=== PATIENT | male | born 1935 | race Asian ===

== ENCOUNTER 2016-10-24 02:14 | Emergency (ER) | payer OTHER, MEDICAID ==
[~2016-10-24] VITALS: Ht 170.2 cm; Wt 49.9 kg
[2016-10-24 02:15] VITALS: BP 110/68; PULSE 74; RESP 18; TEMP 98; O2SAT 96
[2016-10-24] MEDS ORDERED: GASTROGRAFIN 120 ML ONE (02:38)
[2016-10-24 03:04] VITALS: BP 118/71; PULSE 75; RESP 18; TEMP 97.9; O2SAT 97
== END 2016-10-24 03:04 | disposition home or self-care (01) ==
LOC: SED 02:14
DX: Z46.59 Encounter for fitting and adjustment of other gastrointestinal appliance and device (principal)
CPT/HCPCS: 43760; 74240; 99284; Q9963

== ENCOUNTER 2016-11-21 10:22 | Emergency (ER) | payer OTHER, MEDICAID ==
[~2016-11-21] VITALS: Ht 170.2 cm; Wt 63.5 kg
[2016-11-21 10:29] VITALS: BP 128/58; PULSE 74; RESP 18; TEMP 98.2; O2SAT 98
--- NOTE | 2016-11-21 10:32 | NUR ---
Dr. Romero at bedside to assess pt and replace G-tube.
--- NOTE | 2016-11-21 10:32 | NUR ---
Pt placed to ER bed 01. Report given to JESSICA Wang.
--- NOTE | 2016-11-21 10:33 | NUR ---
PT SENT FROM [facility] FOR GT REPLACEMENT.PT HAS T-BAR. NO TRAUMA OR S/S INFECTION NOTED.
[2016-11-21] MEDS ORDERED: GASTROGRAFIN 120 ML ONE (10:36)
--- NOTE | 2016-11-21 10:45 | NUR ---
GT REPLACED BY .XRAY BEDSIDE AT PLACEMENT CHECK.
--- NOTE | 2016-11-21 10:52 | NUR ---
REPORT GIVEN TO PATIENCE [facility]ALEZ [facility] FOR PT D/C.
[2016-11-21 10:55] VITALS: BP 128/58; PULSE 74; RESP 18; TEMP 98.2; O2SAT 98
--- NOTE | 2016-11-21 10:55 | NUR ---
Patient given written and verbal discharge instructions and verbalizes understanding. ER MD discussed with patient the results and treatment provided. Given copies of tests performed in ER. Patient in stable condition. ID arm band removed. Primary care facilty educated on pain management and to follow up with PMD. Pain Scale 0 Opportunity for questions provided and answered.
== END 2016-11-21 10:55 | disposition home or self-care (01) ==
LOC: SED 10:22
DX: K94.23 Gastrostomy malfunction (principal); Z46.59 Encounter for fitting and adjustment of other gastrointestinal appliance and device; E11.9 Type 2 diabetes mellitus without complications; K21.9 Gastro-esophageal reflux disease without esophagitis; I10 Essential (primary) hypertension; Z86.73 Personal history of transient ischemic attack (TIA), and cerebral infarction without residual deficits
CPT/HCPCS: 74240-TC; 99284; Q9963

== ENCOUNTER 2017-11-13 11:39 | Inpatient (IN) | payer OTHER, MEDICAID ==
[~2017-11-13] VITALS: Ht 170.2 cm; Wt 72.6 kg
[~2017-11-13 11:39] MED LIST: ALBU2.5V7 INH; AMLO5TAB4 GT; FER300L GT; MAGN400O4 GT; OMEP40CA33 GT; ROB1 GT; SENN-153 GT; TRAM50TA92 GT; TYLL650 GT; TYLL650 PO
[2017-11-13 11:40] VITALS: BP_SYST 112
[2017-11-13] MEDS ORDERED: NACL 0.9% 1,000 ML IV SCH (11:45)
[2017-11-13] MEDS ORDERED: PIPERACILLIN/TAZO 3.38 GM in D5W 50 ML IV ONE (11:45)
[2017-11-13] MEDS ORDERED: VANCOMYCIN HCL 1,000 MG in D5W 250 ML IV ONE (11:45)
[2017-11-13 12:48] LABS: HEMATOCRIT 36.5 % (36-54); HEMOGLOBIN 11.6 g/dL (14.0-18.0); MEAN CORPUSCULAR HEMOGLOBIN 27 pg (27-31); MEAN CORPUSCULAR HGB CONC 32 % (32-36); MEAN CORPUSCULAR VOLUME 84 fL (79.0-98.0); PLATELET COUNT (AUTO) 631 K/uL (130-430); RED BLOOD CELL COUNT(AUTO) 4.34 MIL/uL (4.2-6.2); RED CELL DISTRIBUTION WIDTH 18.7 % (9.0-15.0); WHITE BLOOD COUNT (AUTO) 19.8 K/uL (4.8-10.8)
[2017-11-13 12:50] LABS: ANION GAP 3 (5-15); CALCIUM 9.2 mg/dL (8.4-11.0); CHLORIDE 101 mmol/L (98-107); CREATININE 1.05 mg/dL (0.55-1.30); GLUCOSE 109 mg/dL (70-99); POTASSIUM 4.6 mmol/L (3.5-5.1); SODIUM SERUM 132 mmol/L (136-145); UREA NITROGEN, BLOOD 36 mg/dL (8-21)
[2017-11-13 12:54] LABS: INR 0.9 (0.80-1.20); PROTHROMBIN TIME 9.6 SECS (9.5-12.5)
[2017-11-13 12:55] LABS: ALANINE AMINOTRANSFERASE 21 U/L (12-78); ALBUMIN 3.2 g/dL (3.4-4.8); ASPARTATE AMINOTRANSFERASE 22 U/L (10-37); TOTAL BILIRUBIN 0.6 mg/dL (0.0-1.0)
[2017-11-13 13:13] LABS: BAND % (MANUAL) 3 % (0-6); BASOPHILS % (MANUAL) 0 % (0-2); EOSINOPHILS % (MANUAL) 3 % (0-7); LYMPHOCYTES % (MANUAL) 9 % (20-46); MONOCYTES % (MANUAL) 3 % (0-11)
[2017-11-13] MEDS ORDERED: VANCOMYCIN HCL 1000 MG/VIAL IV ONE (13:14)
[2017-11-13] MEDS ORDERED: PIPERACILLIN/TAZOBACTAM 3.375 GM/VIAL (ZOSYN) IV ONE (13:14)
[2017-11-13] MEDS ORDERED: MULT GT (14:33)
[2017-11-13] MEDS ORDERED: CHLO473M5 MM (14:33)
[2017-11-13] MEDS ORDERED: UTI-STAT GT (14:33)
[2017-11-13] MEDS ORDERED: VITAMIN C GT (14:33)
[2017-11-13] MEDS ORDERED: INSULIN REGULAR, HUMAN 100 UNITS/ML, 10 ML VIAL (novoLIN R) SUBCUT PRN (15:30)
[2017-11-13] MEDS ORDERED: MILK OF MAGNESIA 30 ML UDC PO PRN (15:30)
[2017-11-13] MEDS ORDERED: ALBUTEROL SULFATE 0.083% 2.5 MG/3 ML VIAL.NEB INH PRN (15:30)
[2017-11-13] MEDS ORDERED: traMADol HCL HCL 50 MG TABLET (ULTRAM) GT PRN (15:30)
[2017-11-13] MEDS ORDERED: MILK OF MAGNESIA 30 ML UDC GT PRN (15:30)
[2017-11-13] MEDS ORDERED: ACETAMINOPHEN 650 MG/20.3 ML UDC GT PRN (15:30)
[2017-11-13] MEDS ORDERED: LevALBUTEROL HCL 1.25 MG/0.5 ML *CONC.* VIAL.NEB (XOPENEX CONC.) INH PRN (15:30)
[2017-11-13 15:40] LABS: BILIRUBIN,URINE NEGATIVE (NEGATIVE); BLOOD, URINE 2+ (NEGATIVE); COLOR,URINE YELLOW (YELLOW); GLUCOSE,URINE NEGATIVE (NEGATIVE); KETONES,URINE NEGATIVE (NEGATIVE); LEUKOCYTE ESTERASE ,URINE 3+ (NEGATIVE); NITRITE, URINE NEGATIVE (NEGATIVE); PH,URINE 7.5 (5.0-8.0); PROTEIN URINE 2+ (NEGATIVE); UROBILINOGEN,URINE 0.2 (0.2-1.0)
[2017-11-13 15:47] LABS: CLARITY/URINE HAZY (CLEAR)
[2017-11-13 15:48] LABS: WBC,URINE 50-80 /HPF (0-3)
[2017-11-13 15:49] LABS: BACTERIA,URINE MODERATE /HPF (None Seen); MUCUS,URINE None Seen /LPF (None Seen)
[2017-11-13 16:01] VITALS: BP_SYST 121
[2017-11-13 16:06] VITALS: BP_SYST 121
[2017-11-13 18:13] VITALS: BP_SYST 121
[2017-11-13] MEDS: PIPERACILLIN/TAZO 3.375/DEX-IS 50 ML IV SCH (18:28)
[2017-11-13] MEDS ORDERED: ALBUTEROL SULFATE 0.083% 2.5 MG/3 ML VIAL.NEB INH SCH (19:00)
[2017-11-13 20:00] VITALS: BP_SYST 148
[2017-11-13] MEDS: FERROUS SULFATE 300 MG/5 ML UDC GT SCH (21:39)
[2017-11-13] MEDS: GLYCOPYRROLATE 1 MG TABLET GT SCH (21:39)
[2017-11-13] MEDS: SENNOSIDES 8.6 MG TABLET GT SCH (21:39)
[2017-11-13] MEDS: CHLORHEXIDINE GLUCONATE 15 ML/DOSE, 480 ML MM SCH (21:40)
[2017-11-13] MEDS: LevALBUTEROL HCL 1.25 MG/0.5 ML *CONC.* VIAL.NEB (XOPENEX CONC.) INH SCH (23:01)
[2017-11-14] MEDS: PIPERACILLIN/TAZO 3.375/DEX-IS 50 ML IV SCH ×5 (00:08→23:11)
[2017-11-14] MEDS: LevALBUTEROL HCL 1.25 MG/0.5 ML *CONC.* VIAL.NEB (XOPENEX CONC.) INH SCH ×3 (07:19→22:50)
[2017-11-14 07:55] VITALS: BP_SYST 97
[2017-11-14 08:23] LABS: HEMATOCRIT 31.3 % (36-54); HEMOGLOBIN 10.2 g/dL (14.0-18.0); MEAN CORPUSCULAR HEMOGLOBIN 27 pg (27-31); MEAN CORPUSCULAR HGB CONC 33 % (32-36); MEAN CORPUSCULAR VOLUME 84 fL (79.0-98.0); PLATELET COUNT (AUTO) 605 K/uL (130-430); RED BLOOD CELL COUNT(AUTO) 3.72 MIL/uL (4.2-6.2); RED CELL DISTRIBUTION WIDTH 18.7 % (9.0-15.0); WHITE BLOOD COUNT (AUTO) 14.3 K/uL (4.8-10.8)
[2017-11-14 08:47] LABS: ANION GAP 5 (5-15); CALCIUM 8.7 mg/dL (8.4-11.0); CHLORIDE 105 mmol/L (98-107); CREATININE 1.18 mg/dL (0.55-1.30); GLUCOSE 120 mg/dL (70-99); POTASSIUM 4.6 mmol/L (3.5-5.1); SODIUM SERUM 139 mmol/L (136-145); UREA NITROGEN, BLOOD 26 mg/dL (8-21)
[2017-11-14] MEDS: amLODIPine BESYLATE 5 MG TABLET GT SCH (09:00)
[2017-11-14] MEDS ORDERED: ACETAMINOPHEN 650 MG/20.3 ML UDC GT SCH (09:00)
[2017-11-14] MEDS: CHLORHEXIDINE GLUCONATE 15 ML/DOSE, 480 ML MM SCH ×2 (10:05→20:43)
[2017-11-14] MEDS: FERROUS SULFATE 300 MG/5 ML UDC GT SCH ×3 (10:05→20:42)
[2017-11-14] MEDS: GLYCOPYRROLATE 1 MG TABLET GT SCH ×2 (10:06→20:42)
[2017-11-14] MEDS: MULTIVITAMINS TAB 1 TABLET GT SCH (10:06)
[2017-11-14] MEDS: VANCOMYCIN HCL 1,500 MG in NS 250 ML IV SCH (10:06)
[2017-11-14] MEDS: OMEPRAZOLE 20 MG CAPSULE.DR (PriLOSEC) GT SCH (10:07)
[2017-11-14 10:23] LABS: BASOPHILS % (MANUAL) 0 % (0-2); EOSINOPHILS % (MANUAL) 1 % (0-7); LYMPHOCYTES % (MANUAL) 7 % (20-46); MONOCYTES % (MANUAL) 6 % (0-11)
[2017-11-14 15:08] VITALS: BP_SYST 101
[2017-11-14 20:00] VITALS: BP_SYST 105
[2017-11-14] MEDS: SENNOSIDES 8.6 MG TABLET GT SCH (20:42)
[2017-11-14 23:59] VITALS: BP_SYST 121
[2017-11-15] MEDS: PIPERACILLIN/TAZO 3.375/DEX-IS 50 ML IV SCH ×4 (06:00→23:18)
[2017-11-15 07:17] LABS: BASOPHILS # (AUTO) 0.1 K/uL (0.0-0.2); BASOPHILS % (AUTO) 0.8 % (0.0-2.0); EOSINOPHILS # (AUTO) 1.2 K/uL (0.0-0.4); EOSINOPHILS % (AUTO) 9.5 % (0.0-4.0); HEMATOCRIT 30.1 % (36-54); HEMOGLOBIN 9.7 g/dL (14.0-18.0); LYMPHOCYTES # (AUTO) 1.1 K/uL (1.0-5.5); LYMPHOCYTES % (AUTO) 8.9 % (20.5-51.5); MEAN CORPUSCULAR HEMOGLOBIN 27 pg (27-31); MEAN CORPUSCULAR HGB CONC 32 % (32-36); MEAN CORPUSCULAR VOLUME 84 fL (79.0-98.0); MONOCYTES # (AUTO) 0.5 K/uL (0.0-1.0); NEUTROPHILS # (AUTO) 9.5 K/uL (1.8-7.7); NEUTROPHILS % (AUTO) 76.8 % (40.0-70.0); PLATELET COUNT (AUTO) 593 K/uL (130-430); RED BLOOD CELL COUNT(AUTO) 3.59 MIL/uL (4.2-6.2); WHITE BLOOD COUNT (AUTO) 12.4 K/uL (4.8-10.8)
[2017-11-15] MEDS: LevALBUTEROL HCL 1.25 MG/0.5 ML *CONC.* VIAL.NEB (XOPENEX CONC.) INH SCH ×3 (07:35→23:31)
[2017-11-15 07:51] LABS: ANION GAP 5 (5-15); CALCIUM 8.7 mg/dL (8.4-11.0); CHLORIDE 106 mmol/L (98-107); CREATININE 1.19 mg/dL (0.55-1.30); GLUCOSE 132 mg/dL (70-99); POTASSIUM 4.2 mmol/L (3.5-5.1); SODIUM SERUM 142 mmol/L (136-145); UREA NITROGEN, BLOOD 27 mg/dL (8-21)
[2017-11-15 08:53] VITALS: BP_SYST 127
[2017-11-15] MEDS: MULTIVITAMINS TAB 1 TABLET GT SCH (08:57)
[2017-11-15] MEDS: GLYCOPYRROLATE 1 MG TABLET GT SCH ×2 (08:57→20:44)
[2017-11-15] MEDS: FERROUS SULFATE 300 MG/5 ML UDC GT SCH ×3 (08:57→20:44)
[2017-11-15] MEDS: OMEPRAZOLE 20 MG CAPSULE.DR (PriLOSEC) GT SCH (08:57)
[2017-11-15] MEDS: amLODIPine BESYLATE 5 MG TABLET GT SCH (08:58)
[2017-11-15] MEDS: CHLORHEXIDINE GLUCONATE 15 ML/DOSE, 480 ML MM SCH ×2 (09:00→20:52)
[2017-11-15] MEDS: VANCOMYCIN HCL 1,500 MG in NS 250 ML IV SCH (09:00)
[2017-11-15 11:25] VITALS: BP_SYST 110
[2017-11-15 11:44] LABS: INR 0.9 (0.80-1.20); PROTHROMBIN TIME 9.6 SECS (9.5-12.5)
[2017-11-15 15:31] VITALS: BP_SYST 124
[2017-11-15 20:00] VITALS: BP_SYST 135
[2017-11-15] MEDS: SENNOSIDES 8.6 MG TABLET GT SCH (20:44)
[2017-11-16] VITALS: BP_SYST 117
[2017-11-16] MEDS: PIPERACILLIN/TAZO 3.375/DEX-IS 50 ML IV SCH ×2 (05:11→12:05)
[2017-11-16] MEDS: LevALBUTEROL HCL 1.25 MG/0.5 ML *CONC.* VIAL.NEB (XOPENEX CONC.) INH SCH (07:14)
[2017-11-16 07:32] LABS: ANION GAP 3 (5-15); CHLORIDE 108 mmol/L (98-107); CREATININE 1.13 mg/dL (0.55-1.30); GLUCOSE 105 mg/dL (70-99); POTASSIUM 4.5 mmol/L (3.5-5.1); SODIUM SERUM 142 mmol/L (136-145); UREA NITROGEN, BLOOD 29 mg/dL (8-21)
[2017-11-16 08:00] VITALS: BP_SYST 140
[2017-11-16 09:32] VITALS: BP_SYST 117
[2017-11-16] MEDS: FERROUS SULFATE 300 MG/5 ML UDC GT SCH (09:48)
[2017-11-16] MEDS: VANCOMYCIN HCL 1,500 MG in NS 250 ML IV SCH (09:48)
[2017-11-16] MEDS: GLYCOPYRROLATE 1 MG TABLET GT SCH (09:49)
[2017-11-16] MEDS: amLODIPine BESYLATE 5 MG TABLET GT SCH (09:49)
[2017-11-16] MEDS: MULTIVITAMINS TAB 1 TABLET GT SCH (09:49)
[2017-11-16] MEDS: OMEPRAZOLE 20 MG CAPSULE.DR (PriLOSEC) GT SCH (09:49)
[2017-11-16] MEDS: CHLORHEXIDINE GLUCONATE 15 ML/DOSE, 480 ML MM SCH (09:50)
[2017-11-16 10:22] LABS: HEMATOCRIT 32.2 % (36-54); HEMOGLOBIN 10.3 g/dL (14.0-18.0); MEAN CORPUSCULAR HEMOGLOBIN 27 pg (27-31); MEAN CORPUSCULAR HGB CONC 32 % (32-36); MEAN CORPUSCULAR VOLUME 85 fL (79.0-98.0); PLATELET COUNT (AUTO) 647 K/uL (130-430); RED CELL DISTRIBUTION WIDTH 19.5 % (9.0-15.0); WHITE BLOOD COUNT (AUTO) 11.6 K/uL (4.8-10.8)
[2017-11-16 10:30] LABS: BASOPHILS % (MANUAL) 0 % (0-2); EOSINOPHILS % (MANUAL) 9 % (0-7); LYMPHOCYTES % (MANUAL) 9 % (20-46); MONOCYTES % (MANUAL) 6 % (0-11)
[2017-11-16 11:22] VITALS: BP_SYST 94
[2017-11-16 14:08] VITALS: BP_SYST 155
== END 2017-11-16 15:05 | DRG 871 ==
LOC: SED 11:39 → STU 14:32 → SMU 15:40
PROVIDERS: ADMIT Family Medicine; ATTEND Family Medicine
DX: A41.9 Sepsis, unspecified organism (principal); J69.0 Pneumonitis due to inhalation of food and vomit; J96.10 Chronic respiratory failure, unspecified whether with hypoxia or hypercapnia; Z93.0 Tracheostomy status; E44.1 Mild protein-calorie malnutrition; E87.1 Hypo-osmolality and hyponatremia; E11.9 Type 2 diabetes mellitus without complications; D64.9 Anemia, unspecified; I69.354 Hemiplegia and hemiparesis following cerebral infarction affecting left non-dominant side; N39.0 Urinary tract infection, site not specified; I25.10 Atherosclerotic heart disease of native coronary artery without angina pectoris; I10 Essential (primary) hypertension; K21.9 Gastro-esophageal reflux disease without esophagitis; Z93.1 Gastrostomy status; Z68.25 Body mass index [BMI] 25.0-25.9, adult; Z79.899 Other long term (current) drug therapy
CPT/HCPCS: 36415; 71045; 73060-TC; 80048; 80053; 81000-TC; 82962; 83605; 84484; 85007; 85025; 85027; 85610-TC; 85730-TC; 87040-TC; 87081; 87086; 93005; 94640; 94760; 96365; 96367; 99285; J1815; J2543; J3370; J7030; J7050; J7060

== ENCOUNTER 2017-12-13 12:16 | Emergency (ER) | payer OTHER, MEDICAID ==
[~2017-12-13] VITALS: Ht 177.8 cm; Wt 79.4 kg
[~2017-12-13 12:16] MED LIST changes: +CHLO473M5 MM; +MULT GT; +SSREG SUBCUT; -TYLL650 PO; +UTI-STAT GT; +VITAMIN C GT
--- NOTE | 2017-12-13 12:20 | NUR ---
Arrived via S ambulance for GT replacement. Patient to ER jimenez on EMS gurney for evaluation. Side rails up. Assumed care of patient.
[2017-12-13 12:24] VITALS: BP_SYST 110
--- NOTE | 2017-12-13 12:28 | NUR ---
Dr. Mendoza in [facility] performing GT replacement.
[2017-12-13] MEDS ORDERED: GASTROGRAFIN 120 ML ONE (12:54)
--- NOTE | 2017-12-13 13:45 | NUR ---
Called report to Sherita LOPEZ at [facility]. Patient will be transported via BLS ambulance to [facility].
== END 2017-12-13 13:45 | disposition home or self-care (01) ==
LOC: SED 12:16
DX: Z46.59 Encounter for fitting and adjustment of other gastrointestinal appliance and device (principal); E11.9 Type 2 diabetes mellitus without complications; K21.9 Gastro-esophageal reflux disease without esophagitis; I10 Essential (primary) hypertension; J44.9 Chronic obstructive pulmonary disease, unspecified; Z86.73 Personal history of transient ischemic attack (TIA), and cerebral infarction without residual deficits; Z79.4 Long term (current) use of insulin; Z90.49 Acquired absence of other specified parts of digestive tract; Z79.899 Other long term (current) drug therapy
CPT/HCPCS: 43760; 74240; 99284; Q9963

== ENCOUNTER 2018-01-11 01:30 | Emergency (ER) | payer OTHER, MEDICAID ==
[~2018-01-11] VITALS: Ht 185.4 cm; Wt 83.9 kg
[2018-01-11 01:30] VITALS: BP_SYST 70
[2018-01-11] MEDS ORDERED: EPINEPHrine JECT 1 MG/10 ML SYR IVP ONE (01:31)
[2018-01-11] MEDS ORDERED: ATROPINE SULFATE 1 MG/10 ML SYRINGE IVP ONE (01:31)
[2018-01-11] MEDS: NS 1000 ML BAG IV ONE (02:16)
[2018-01-11] MEDS ORDERED: ZIN220 GT (02:30)
[2018-01-11] MEDS ORDERED: DULR10 RC (02:30)
[2018-01-11] MEDS ORDERED: LEVO500T20 GT (02:30)
[2018-01-11] MEDS ORDERED: FER300L GT (02:30)
[2018-01-11] MEDS ORDERED: TYLL650 GT (02:30)
[2018-01-11 02:47] LABS: ANION GAP 24 (5-15); CHLORIDE 91 mmol/L (98-107); CREATININE 3.63 mg/dL (0.55-1.30); GLUCOSE 73 mg/dL (70-99); POTASSIUM 5.5 mmol/L (3.5-5.1); SODIUM SERUM 130 mmol/L (136-145); UREA NITROGEN, BLOOD 69 mg/dL (8-21)
[2018-01-11 02:52] LABS: ALANINE AMINOTRANSFERASE 400 U/L (12-78); ALBUMIN 2.5 g/dL (3.4-4.8); ASPARTATE AMINOTRANSFERASE 457 U/L (10-37); TOTAL BILIRUBIN 2.4 mg/dL (0.0-1.0)
[2018-01-11 02:55] LABS: HEMATOCRIT 33.3 % (36-54); HEMOGLOBIN 10.5 g/dL (14.0-18.0); MEAN CORPUSCULAR HEMOGLOBIN 28 pg (27-31); MEAN CORPUSCULAR HGB CONC 32 % (32-36); MEAN CORPUSCULAR VOLUME 89 fL (79.0-98.0); PLATELET COUNT (AUTO) 239 K/uL (130-430); RED BLOOD CELL COUNT(AUTO) 3.74 MIL/uL (4.2-6.2); RED CELL DISTRIBUTION WIDTH 17.9 % (9.0-15.0)
[2018-01-11 02:58] LABS: INR 1.3 (0.80-1.20)
[2018-01-11 02:59] LABS: PROTHROMBIN TIME 13.3 SECS (9.5-12.5)
[2018-01-11 03:00] LABS: WHITE BLOOD COUNT (AUTO) 33.4 K/uL (4.8-10.8)
[2018-01-11] MEDS ORDERED: PIPERACILLIN/TAZOBACTAM 3.375 GM/VIAL (ZOSYN) IV ONE (03:19)
[2018-01-11 03:30] LABS: BAND % (MANUAL) 28 % (0-6); LYMPHOCYTES % (MANUAL) 2 % (20-46); MONOCYTES % (MANUAL) 1 % (0-11)
[2018-01-11 03:31] LABS: BASOPHILS % (MANUAL) 0 % (0-2); EOSINOPHILS % (MANUAL) 2 % (0-7); METAMYELOCYTES % 13 % (0-0)
[2018-01-11] MEDS ORDERED: VANCOMYCIN HCL 1000 MG/VIAL IV ONE ×2 (03:42→04:03)
[2018-01-11] MEDS ORDERED: NOREPINEPHRINE 4 MG/4 ML VIAL IV ONE (03:44)
[2018-01-11] MEDS ORDERED: AZITHROMYCIN 500 MG/VIAL (ZITHROMAX) IV ONE (04:02)
[2018-01-11] MEDS: NOREPINEPHRINE BITARTRATE 4 MG in NS 246 ML IV ONE (04:11)
[2018-01-11] MEDS: PIPERACILLIN/TAZO 3.375 GM in NS 50 ML IV ONE (04:14)
[2018-01-11] MEDS: VANCOMYCIN HCL 1,000 MG in NS 250 ML IV ONE (04:19)
[2018-01-11] MEDS ORDERED: EPINEPHrine JECT 1 MG/10 ML SYR ONE (04:45)
[2018-01-11] MEDS: NACL 0.9% 1,000 ML IV ONE (05:04)
[2018-01-11] MEDS: EPINEPHrine JECT 2 MG in NS 230 ML IV PRN (05:15)
[2018-01-11] MEDS: AZITHROMYCIN 500 MG in NS 250 ML IV ONE (05:16)
[2018-01-11 05:59] VITALS: BP_SYST 75
== END 2018-01-11 06:12 | disposition expired ==
LOC: SED 01:30
DX: A41.9 Sepsis, unspecified organism (principal); J18.9 Pneumonia, unspecified organism; J96.20 Acute and chronic respiratory failure, unspecified whether with hypoxia or hypercapnia; I46.9 Cardiac arrest, cause unspecified; R65.21 Severe sepsis with septic shock; J44.9 Chronic obstructive pulmonary disease, unspecified; E11.9 Type 2 diabetes mellitus without complications; K21.9 Gastro-esophageal reflux disease without esophagitis; Z86.73 Personal history of transient ischemic attack (TIA), and cerebral infarction without residual deficits; Z79.899 Other long term (current) drug therapy
CPT/HCPCS: 36415; 36556; 36600; 36680; 51702; 71045; 80053; 82803; 83605; 84484; 85007; 85027; 85610; 85730; 87040; 87186 ×2; 92950; 93005; 96361; 96365; 96366; 96367; 96368; 99291; 99292; C1751; J0171; J0456; J0461; J2543; J3370; J7030; J7050